=== PATIENT | male | born 1965 | race American Indian/Alaskan Native ===

== ENCOUNTER 2020-05-26 10:59 | Outpatient (CLI) | payer OTHER ==
--- NOTE | 2020-05-26 12:40 | XRay Report ---
XR spine lumbosacral 2-3V INDICATION / CLINICAL INFORMATION: BACK PAIN. COMPARISON: 10/03/2011 FINDINGS: BONES/JOINT(S): Postoperative changes of posterior lumbar interbody fusion spanning L2-L5 with anteri or fixation hardware spanning L3-L4 and L4-L5. No hardware complication is identified. Posterior vert ebral alignment is preserved. No evidence of fracture. There is mild disc space height loss at L1-L2. PARASPINAL SOFT TISSUES:No significant abnormality. ADDITIONAL FINDINGS: None. IMPRESSION: Postsurgical lumbar spine. No hardware complication or acute fracture. Signer Name: Jasiel Kim MD Signed: 05/26/2020 12:35 PM Workstation Name: [id number]
== END 2020-05-26 11:00 | disposition home or self-care (01) ==
LOC: XRAY 10:59
PROVIDERS: ATTEND Internal Medicine
DX: M54.5 Low back pain (principal); I10 Essential (primary) hypertension; E11.9 Type 2 diabetes mellitus without complications; E78.00 Pure hypercholesterolemia, unspecified; M25.519 Pain in unspecified shoulder; Z98.890 Other specified postprocedural states; F99 Mental disorder, not otherwise specified
CPT/HCPCS: 72100